=== PATIENT | female | born 2000 | race Caucasian/White ===

== ENCOUNTER 2022-02-27 19:40 | Emergency (ER) | payer OTHER, SELFPAY ==
[2022-02-27 19:43] VITALS: BP 143/90; PULSE 98; RESP 18; TEMP 36.1; O2SAT 98; BMI 35.7
--- NOTE | 2022-02-27 19:55 | ED_ITS ---
HPI - General Adult General Chief complaint: Wound/Laceration <JAMSHID Black - Last Filed: 02/27/22 19:56> Stated complaint: right foot laceration <JAMSHID Black - Last Filed: 02/27/22 19:56> Time Seen by Provider: 02/27/22 20:10 <JAMSHID Black - Last Filed: 02/27/22 19:56> Source: patient <Lucia Ford NP - Last Filed: 02/28/22 03:07> Mode of arrival: ambulatory <Lucia Ford NP - Last Filed: 02/28/22 03:07> Limitations: no limitations <Lucia Ford NP - Last Filed: 02/28/22 03:07> History of Present Illness HPI narrative: 22-year-old female presents with laceration to the plantar surface of the right great toe after stepping on a lid of a metal can. Last Tdap vaccine was updated 5 years ago. <Lucia Ford NP - Last Filed: 02/28/22 03:07> Onset (ago): hour(s) (Within the hour of arrival) <Lucia Ford NP - Last Filed: 02/28/22 03:07> Location: right and lower extremity <Lucia Ford NP - Last Filed: 02/28/22 03:07> Radiation: non-radiation <Lucia Ford NP - Last Filed: 02/28/22 03:07> Severity: mild <Lucia Ford NP - Last Filed: 02/28/22 03:07> Severity scale (1-10): 3 <Lucia Ford NP - Last Filed: 02/28/22 03:07> Quality: burning <Lucia Ford NP - Last Filed: 02/28/22 03:07> Pain Consistency: constant <Lucia Ford NP - Last Filed: 02/28/22 03:07> Relieving factors: none <Lucia Ford NP - Last Filed: 02/28/22 03:07> Exacerbating factors: movement <Lucia Ford NP - Last Filed: 02/28/22 03:07> Associated symptoms: denies other symptoms <Lucia Ford NP - Last Filed: 02/28/22 03:07> Treatments prior to arrival: other (Bandage) <Lucia Ford NP - Last Filed: 02/28/22 03:07> Related Data Home medications: Previous Rx's Medication Instructions Recorded amoxicillin 875 mg-potassium 1 tab PO Q12H 10 days #20 tabs 02/27/22 clavulanate 125 mg tablet <JAMSHID Black - Last Filed: 02/27/22 19:56> Allergies/adverse reactions: Allergies Allergy/AdvReac Type Severity Reaction Status Date / Time No Known Allergies Allergy Verified 02/27/22 19:56 [No Known Allergies*] <JAMSHID Black - Last Filed: 02/27/22 19:56> Review of Systems Review of Systems: Constitutional: No Fever, No Chills Cardiovascular: No Chest Pain, No SOB Respiratory: No Cough, No Dyspnea Gastrointestinal: No Nausea, No Vomiting Musculoskeletal: positive right great toe pain Skin: Positive toe laceration, No rash Neuro: No Numbness, No Paresthesias <Lucia Ford NP - Last Filed: 02/28/22 03:07> Yes all other systems are reviewed and are negative <Lucia Ford NP - Last Filed: 02/28/22 03:07> [facility] Past Medical History Attestation statement: The following information was validated with the patient. <Lucia Ford NP - Last Filed: 02/28/22 03:07> Source: old records reviewed <Lucia Ford NP - Last Filed: 02/28/22 03:07> Social History Social History: Social History Advance Directives: No Advance Directives Information Provided: Yes <JAMSHID Black - Last Filed: 02/27/22 19:56> Physical Exam ED Vital Signs: Vital Signs - 24 hr 02/27/22 19:43 Temperature 96.9 F Pulse Rate 98 Respiratory Rate 18 Blood Pressure 143/90 H Pulse Oximetry 98 Oxygen Delivery Method Room Air BMI result Body Mass Index 35.7 <JAMSHID Black - Last Filed: 02/27/22 19:56> Vital Signs - 24 hr 02/27/22 19:43 Temperature 96.9 F Pulse Rate 98 Respiratory Rate 18 Blood Pressure 143/90 H Pulse Oximetry 98 Oxygen Delivery Method Room Air BMI result Body Mass Index 35.7 <Lucia Ford NP - Last Filed: 02/28/22 03:07> Appearance: Alert. Oriented X3. No acute distress. Eyes: Pupils equal, round and reactive to light. Neck: Normal inspection. Neck supple. CVS: Normal heart rate and rhythm. Respiratory: No respiratory distress. Skin: 2 cm laceration to the dorsal aspect of the right great toe Extremities: No lower extremity edema. Neuro: No motor deficit. No sensory deficit. <Lucia Ford NP - Last Filed: 02/28/22 03:07> Course Course Course Narrative: RME performed by Lorena Castillo PA-C. Patient is a 22 year old female presenting to the emergency department with a right foot laceration after stepping on a pop tab. <JAMSHID Black Last Filed: 02/27/22 19:56> RME performed by Lorena Castillo PA-C. Patient is a 22 year old female presenting to the emergency department with a right foot laceration after stepping on a pop tab. 22-year-old female presents for laceration to the bottom of her right toe. She stepped on the lid of a metal spaghetti can. Her last Tdap was approximately 5 years ago however she is unsure. Will update the Tdap vaccine at this time. 20:45 prepped and draped in sterile fashion. Irrigated with copious amounts of sterile saline. Patient tolerated procedure well. Brisk capillary refill and full range of motion status post laceration repair 21:17 patient continues with brisk capillary refill in full range of motion. No bleeding noted. Considering patient cut herself on a metal can, can contained food products, I feel antibiotics are appropriate for this patient. Patient understands that she must return in 10-14 days to have sutures removed. Patient verbalized understanding of and agrees to plan of care discharge home. Verbalized understanding of signs and symptoms indicating need for emergent intervention. <Lucia Ford NP - Last Filed: 02/28/22 03:07> Medications Administered Discontinued Medications Generic Name Dose Route Start Last Admin Trade Name Freq PRN Reason Stop Dose Admin Amoxicillin/Clavulanate Potassium 875 mg 02/27/22 20:30 02/27/22 20:59 Amoxicillin/Potassium Clav 875 Mg Tablet PO 02/27/22 20:31 875 mg ONCE ONE Administration Diphtheria/Tetanus/Acell Pertussis 0.5 ml 02/27/22 20:30 02/27/22 20:59 Diphth,Pertus(Acell),Tet Adult 0.5 Ml Syringe IM 02/27/22 20:31 0.5 ml .ONCE ONE Administration Lidocaine HCl 2 ml 02/27/22 20:30 02/27/22 21:00 Lidocaine Hcl 2% 2 Ml Vial SUBCUT 02/27/22 20:31 2 ml ONCE ONE Administration <JAMSHID Black - Last Filed: 02/27/22 19:56> Medications Administered Discontinued Medications Generic Name Dose Route Start Last Admin Trade Name Charlie PRN Reason Stop Dose Admin Amoxicillin/Clavulanate Potassium 875 mg 02/27/22 20:30 02/27/22 20:59 Amoxicillin/Potassium Clav 875 Mg Tablet PO 02/27/22 20:31 875 mg ONCE ONE Administration Diphtheria/Tetanus/Acell Pertussis 0.5 ml 02/27/22 20:30 02/27/22 20:59 Diphth,Pertus(Acell),Tet Adult 0.5 Ml Syringe IM 02/27/22 20:31 0.5 ml .ONCE ONE Administration Lidocaine HCl 2 ml 02/27/22 20:30 02/27/22 21:00 Lidocaine Hcl 2% 2 Ml Vial SUBCUT 02/27/22 20:31 2 ml ONCE ONE Administration <Lucia Ford NP - Last Filed: 02/28/22 03:07> Procedures Laceration Laceration 1: Site: lower extremity <Lucia Ford NP - Last Filed: 02/28/22 03:07> Side (If applicable): right (Great toe) <Lucia Ford NP - Last Filed: 02/28/22 03:07> Size (cm): 2.5 <Lucia Ford NP - Last Filed: 02/28/22 03:07> Description: linear <Lucia Ford NP - Last Filed: 02/28/22 03:07> Depth: simple, single layer <Lucia Ford NP - Last Filed: 02/28/22 03:07> Local Anesthetic: lidocaine 2% <Lucia Ford NP - Last Filed: 02/28/22 03:07> Amount of anesthesia used (mL): 4 <Lucia Ford NP - Last Filed: 02/28/22 03:07> Pre-repair: wound explored, irrigated extensively and deep structures intact <Lucia Ford NP - Last Filed: 02/28/22 03:07> Skin layer closed with: nylon <Lucia Ford NP - Last Filed: 02/28/22 03:07> Size (cm): 4-0 <Lucia Ford NP - Last Filed: 02/28/22 03:07> Number of sutures: 5 <Lucia Ford NP - Last Filed: 02/28/22 03:07> Technique: simple, interrupted <Lucia Ford NP - Last Filed: 02/28/22 03:07> Medical Decision Making Differential Diagnosis Differential Diagnoses: The differential diagnosis associated with the presentation includes <Lucia Ford NP - Last Filed: 02/28/22 03:07> Laceration, foreign body <Lucia Ford NP - Last Filed: 02/28/22 03:07> Discharge Plan Discharge Clinical Impression: Laceration of toe <JAMSHID Black - Last Filed: 02/27/22 19:56> Patient Disposition: Home, Self-Care <JAMSHID Black - Last Filed: 02/27/22 19:56> Instructions: Laceration (ED) <JAMSHID Black Last Filed: 02/27/22 19:56> Additional Instructions: You were evaluated for laceration to her toe. We placed 5 sutures. Please return in 10-14 days to have sutures removed. Take Augmentin 875 mg daily for the next 10 days. We updated her Tdap vaccine today. Thank you for choosing this emergency department for evaluation. Please follow-up with primary care physician as needed. Return to the emergency department for any new, concerning, or worsening symptoms. <JAMSHID Black - Last Filed: 02/27/22 19:56> Prescriptions: New amoxicillin-pot clavulanate 875-125 mg tablet 1 tab PO Q12H 10 Days Qty: 20 0RF <JAMSHID Black - Last Filed: 02/27/22 19:56> Interventions: ED Discharge Assessment Last Done: 02/27/22 21:37 <JAMSHID Black - Last Filed: 02/27/22 19:56> Discharge Date/Time: 02/27/22 21:38 <JAMSHID Black - Last Filed: 02/27/22 19:56>
--- NOTE | 2022-02-27 20:17 | PC.NURSE ---
Pt has 3 cm lac to left 1st toe. Wound cleansed with wound fur cleaner, and NS. Bleeding controlled at this time. Wound open to air.
--- NOTE | 2022-02-27 20:20 | PC.NURSE ---
Pt has 3 cm lac to right 1st toe. Wound cleansed with wound assembly cleaner, and NS. Bleeding controlled at this time. Wound open to air.
[2022-02-27] MEDS: Diphth,Pertus(ACell),Tet Adult 0.5 ML SYRINGE IM (20:59)
[2022-02-27] MEDS: Amoxicillin/Potassium Clav 875 MG TABLET PO (20:59)
== END 2022-02-27 21:38 | disposition home or self-care (01) ==
PROVIDERS: Emergency Provider Emergency Medicine
DX: S91.111A Laceration without foreign body of right great toe without damage to nail, initial encounter (principal); W26.8XXA Contact with other sharp object(s), not elsewhere classified, initial encounter; Y93.9 Activity, unspecified; Y92.019 Unspecified place in single-family (private) house as the place of occurrence of the external cause; Y99.9 Unspecified external cause status; Z23 Encounter for immunization
CPT/HCPCS: 12001; 90471; 90715; 99282; 99284

== ENCOUNTER 2022-11-30 10:28 | Outpatient (AMB) | payer OTHER, SELFPAY ==
--- NOTE | 2022-11-30 12:26 | MHC.OFFWIV ---
Intake Vital Signs 11/30/22 12:27 Height 5 ft 8 in Weight 236 lb BMI 35.9 BP 126/80 Blood Pressure Location Lt brachial Position Sitting Pulse 78 Pulse Source Pulse Oximeter Temp 97.8 F Temp Source Temporal Artery Scan Pulse Oximetry (%) 99 Intake Visit Reasons: EST/sob/sinus pressure/[phone] Intake Note: pt is here for c/o sinus pressure Patient Tobacco Use Status: Current everyday Tobacco user Allergies No Known Allergies [No Known Allergies*] Allergy (Verified 11/30/22 13:13) Medication List - Last Reconciled 11/30/22 by Cruz Reyes MD No Known Home Meds Do you need a note to return to daycare/school/sports/work: Yes HPI EST/sob/sinus pressure/[phone] HPI Details 22-year-old female presents to the office for sick complaints. She has 2 complaints. Patient has history of allergies and would like medications. She reports symptoms of sneezing, itchy eyes and postnasal drip. Patient has not had period for a year and would like to get a test. FOR[facility]LY [facility] Social History Patient Tobacco Use Status: Current everyday Tobacco user Physical Exam Vital Signs: Last Vital Signs Temp 97.8 F 11/30/22 12:27 Pulse 78 11/30/22 12:27 BP 126/80 11/30/22 12:27 Pulse Ox 99 11/30/22 12:27 BMI result Body Mass Index 35.9 Const General: cooperative and healthy appearing Nutritional Appearance: well nourished Orientation/consciousness: patient oriented x3 Limitations: no limitations HEENT Head: Yes normal to inspection Eyes General: appearance normal, both eyes and all related structures Neck Neck: Yes normal visual inspection Chest Chest palpation & inspection: normal palpation of entire chest wall Resp Effort & Inspection: normal respiratory effort Neuro General: patient oriented x3 Results AMB Test Urine AMB Test Urine Negative Last Edit by DILSHAD Patel on 11/30/22 13:12 Results Reviewed Results Reviewed: Laboratory Last Values [facility]st Clinic Negative 11/30/22 13:11 Assessment & Plan Assessment & Plan (1) Allergic rhinitis: Code(s): J30.9 - Allergic rhinitis, unspecified Plan: Flonase and Ekaterina called in. (2) Secondary amenorrhea: Code(s): N91.1 - Secondary amenorrhea Plan: test was negative. Patient was reassured. Orders: Orders AMB HCG Urine Test Today Z32.02 - Encounter for test, result negative Medications: New fexofenadine (Ekaterina Allergy) 180 mg PO DAILY 30 tabs 0RF fluticasone propionate 50 mcg/actuation (Flonase Allergy Relief) administer into each nostril 1 spray intranasal DAILY 9.9 mL 1RF Coding Level of Care Code Est Pt Level 4 (85546) Diagnoses Allergic rhinitis J30.9 Secondary amenorrhea N91.1
[2022-11-30 12:27] VITALS: BP 126/80; PULSE 78; TEMP 36.6; O2SAT 99; BMI 35.9
== END 2022-11-30 13:43 | disposition home or self-care (01) ==
PROVIDERS: Visit Provider Internal Medicine
DX: J30.9 Allergic rhinitis, unspecified (principal); N91.1 Secondary amenorrhea; Z32.02 Encounter for pregnancy test, result negative
CPT/HCPCS: 81025; 99214